=== PATIENT | female | born 1980 | race Two or more races ===

== ENCOUNTER → 2017-01-05 | Outpatient (CLI) | payer OTHER | LOC: FIMAGING 13:36 | PROVIDERS: ATTEND Family Medicine | DX: Z03.89 Encounter for observation for other suspected diseases and conditions ruled out (principal); M79.89 Other specified soft tissue disorders; M32.9 Systemic lupus erythematosus, unspecified ==

== ENCOUNTER 2018-07-06 05:30 | Emergency (ER) | payer OTHER ==
[2018-07-06] MEDS ORDERED: HYDROCODONE/APAP 5/325 TAB PO ONE (06:12)
--- NOTE | 2018-07-06 06:15 | EDPHY ---
H & P Stated Complaint: R lower leg wound since january, worsening pain swelling Time Seen by Provider: 07/06/18 05:41 HPI/ROS: Chief Complaint: Leg pain HPI: 37-year-old woman with a history of lupus presenting with worsening pain in her right leg. Patient had a nonhealing wound since January after she had a biopsy done on her right lower anterior leg. She has daily pain but the pain was worse this morning. She last took acetaminophen about 4:00 a.m. This morning, 500 mg. She took 1000 mg at 11 o'clock. She is being followed by the wound clinic. Pain is been present since January. Today she is having worsening pain primarily in her calf with some increasing swelling. No chest pain shortness of breath. No fevers or chills. No cough. Pain is exactly like her prior pain only worse. Currently is a 6/10. It prevented her from getting any sleep this morning. She has been evaluated for this extensively and states she had an ultrasound at [facility] several months ago. ROS: 10 systems were reviewed and were negative except those elements noted in the HPI. PMH: Lupus, nonhealing wound right leg Social History: No smoking, no alcohol, no recreational drug use Family History: non-contributory Physical Exam: Gen: Awake, Alert, No Distress HEENT: Nose: no rhinorrhea Eyes: PERRLA, EOMI Mouth: Moist mucosa Neck: Supple, no JVD Chest: nontender, lungs clear to auscultation Heart: S1, S2 normal, no murmur Abd: Soft, non-tender, no guarding Back: no CVA tenderness, no midline tenderness Ext: Moderate right ankle edema with significant calf tenderness. Anterior mesa wound is non erythematous, no discharge, dressing in place Skin: no rash Neuro: CN II-XII intact, Sensation grossly intact, Strength 5/5 in bilateral upper and lower extremities - Personal History Current Tetanus/Diphtheria Vaccine: Unsure Current Tetanus Diphtheria and Acellular Pertussis (TDAP): Unsure - Medical/Surgical History Hx Asthma: Yes Hx Chronic Respiratory Disease: No Hx Diabetes: No Hx Cardiac Disease: No Hx Renal Disease: Yes Hx Cirrhosis: No Hx Alcoholism: No Hx HIV/AIDS: No Hx Splenectomy or Spleen Trauma: No Other PMH: LUPUS, arthritis, asthma, - Social History Smoking Status: Never smoked Constitutional: Initial Vital Signs Temperature (C) 37.9 C 07/06/18 05:31 Heart Rate 81 07/06/18 05:31 Respiratory Rate 20 07/06/18 05:31 Blood Pressure 126/56 H 07/06/18 05:31 O2 Sat (%) 98 07/06/18 05:31 O2 Delivery Mode Room Air Allergies/Adverse Reactions: methotrexate Allergy (Verified 07/06/18 05:31) venlafaxine HCl [From Effexor] Allergy (Verified 07/06/18 05:31) Home Medications: Medication Instructions Recorded Folic Acid 07/06/18 Losartan Potassium [Cozaar] 07/06/18 Mycophenolate Mofetil [Cellcept] 07/06/18 cycloSPORINE [Cyclosporine] 07/06/18 predniSONE 07/06/18 Medical Decision Making - Diagnostics Imaging Results: EXAM: US Duplex right Lower Extremity Veins. CLINICAL HISTORY: RLE swelling and pain. HX of infection Dr. Navdeep Duke [phone] TECHNIQUE: Real-time ultrasound scan of the veins of the right lower extremity with color Doppler flow, spectral waveform analysis and compression. COMPARISON: None provided. FINDINGS: DEEP VEINS: The common femoral, femoral, and popliteal veins are echolucent and compressible. These vessels demonstrate respiratory variation and augmentation. There is normal color Doppler flow throughout. The visualized calf veins are also patent. SUPERFICIAL VEINS: The visualized greater saphenous vein is patent. SOFT TISSUES: No popliteal fossa cyst however varicosities are noted in the calf with inguinal lymph nodes. IMPRESSION: No deep venous thrombosis in the right lower extremity. ELECTRONICALLY SIGNED BY: Marty Tompkins MD Jul 06, 2018 6:31:57 AM MDT ED Course/Re-evaluation: Ultrasound is negative. Patient's pain is improved. No signs of worsening infection or DVT. Will discharge with follow-up with primary care physician as an outpatient. - Data Points Medications Given: Discontinued Medications Hydrocodone Bitart/Acetaminophen ([place] 5/325) 1 tab PO EDNOW ONE Stop: 07/06/18 06:13 Last Admin: 07/06/18 06:18 Dose: 1 tab Departure - Departure Disposition: Home, Routine, Self-Care Clinical Impression: Leg pain Condition: Good Instructions: Leg Pain (ED) Additional Instructions: Follow up with primary care physician in 2-3 days for re-evaluation. Return to the emergency department for increasing pain, redness, swelling, fevers, or any other concerns. Referrals: Julissa Gifford MD [Primary Care Provider] - As per Instructions
[2018-07-06 06:53] VITALS: BP 122/59
== END 2018-07-06 06:59 | disposition home or self-care (01) ==
DX: M79.661 Pain in right lower leg (principal); M32.9 Systemic lupus erythematosus, unspecified; J45.909 Unspecified asthma, uncomplicated

== ENCOUNTER 2018-07-07 15:44 | Observation (INO) | payer OTHER ==
--- NOTE | 2018-07-07 16:14 | EDPHY ---
H & P Stated Complaint: Sent by PCP for CT, chest tightness for 2 days. Time Seen by Provider: 07/07/18 15:57 HPI/ROS: CHIEF COMPLAINT: Shortness of breath HISTORY OF PRESENT ILLNESS: The patient is a 37-year-old female with a history of lupus and asthma who is immunosuppressed on prednisone 40 mg daily as well as CellCept. She has had chronic slow healing wounds in her right lower extremity. Over the last week or so she has noticed edema in that extremity as well. She presented here yesterday and had a ultrasound that was negative for DVT. She was evaluated by Dr. Gifford today and found to have an elevated D- dimer and so sent here for PE CT scan. Also Dr. Gifford felt that she may have a new murmur and the patient complained of fevers and chills about a week ago at home. She has an transthoracic echocardiogram scheduled for tomorrow. She is not having fevers currently. She tells me that she does not really feel short of breath but feels like she is having chest tightness. She denies wheezing or coughing. Severity: Moderate Modifying factors: None REVIEW OF SYSTEMS: Constitutional: denies: chills, fever, recent illness, recent injury EENTM: denies: blurred vision, double vision, nose congestion Respiratory: denies: cough, shortness of breath Cardiac: denies: chest pain, irregular heart rate, lightheadedness, palpitations Gastrointestinal/Abdominal: denies: abdominal pain, diarrhea, nausea, vomiting, blood streaked stools Genitourinary: denies: dysuria, frequency, hematuria, pain Musculoskeletal: denies: joint pain, muscle pain Skin: See HPI Neurological: denies: headache, numbness, paresthesia, tingling, dizziness, weakness Hematologic/Lymphatic: denies: blood clots, easy bleeding, easy bruising Immunologic/allergic: denies: HIV/AIDS, transplant 10 systems reviewed and negative except as noted EXAM: GENERAL: Over way, well-appearing and in no acute distress. HEAD: Atraumatic, normocephalic. EYES: Pupils equal round and reactive to light, extraocular movements intact, sclera anicteric, conjunctiva are normal. ENT: TMs normal, nares patent, oropharynx clear without exudates. Moist mucous membranes. NECK: Normal range of motion, supple without lymphadenopathy or JVD. LUNGS: Breath sounds clear to auscultation bilaterally and equal. No wheezes rales or rhonchi. HEART: Regular rate and rhythm with slight murmur, rubs or gallops. ABDOMEN: Soft, nontender, normoactive bowel sounds. No guarding, no rebound. No masses appreciated. BACK: No CVA tenderness, no spinal tenderness, step-offs or deformities EXTREMITIES: Normal range of motion, 1+ edema in the right lower extremity. No clubbing or cyanosis. NEUROLOGICAL: Cranial nerves II through XII grossly intact. Normal speech, normal gait. 5/5 strength, normal movement in all extremities, normal sensation , normal reflexes PSYCH: Normal mood, normal affect. SKIN: Right leg with chronic wounds dressed by wound care yesterday. No surrounding erythema or warmth. Source: Patient, RN/MD Exam Limitations: Language barrier (Looseleaf Binder Coverer used) - Personal History Current Tetanus Diphtheria and Acellular Pertussis (TDAP): Unsure - Medical/Surgical History Hx Asthma: Yes Hx Chronic Respiratory Disease: No Hx Diabetes: No Hx Cardiac Disease: No Hx Renal Disease: Yes Hx Cirrhosis: No Hx Alcoholism: No Hx HIV/AIDS: No Hx Splenectomy or Spleen Trauma: No Other PMH: LUPUS, arthritis, asthma, - Family History Significant Family History: No pertinent family hx - Social History Smoking Status: Never smoked Alcohol Use: None Constitutional: Initial Vital Signs Temperature (C) 36.7 C 07/07/18 15:47 Heart Rate 90 07/07/18 15:47 Respiratory Rate 18 07/07/18 15:47 Blood Pressure 138/73 H 07/07/18 15:47 O2 Sat (%) 99 07/07/18 15:47 O2 Delivery Mode Room Air Allergies/Adverse Reactions: methotrexate Allergy (Verified 07/06/18 05:31) venlafaxine HCl [From Effexor] Allergy (Verified 07/06/18 05:31) Home Medications: Medication Instructions Recorded Folic Acid 07/06/18 Losartan Potassium [Cozaar] 07/06/18 Mycophenolate Mofetil [Cellcept] 07/06/18 cycloSPORINE [Cyclosporine] 07/06/18 predniSONE 07/06/18 Medical Decision Making - Diagnostics EKG Interpretation: An EKG obtained and was read and documented in trace view. Please see trace view for full reading and report. Sinus rhythm no acute ischemic changes no signs of right heart strain Imaging Results: Imaging Impressions Chest/Thorax CTA 07/07/18 16:06 Impression: 1. No evidence of pulmonary embolus using CT protocol. 2. Normal CT chest. 3. Increase number of small lymph nodes within each axilla. Findings discussed with Santiago Richards M.D. at 17:30 hour, 07/07/2018. Imaging: Discussed imaging studies w/ at home independent call center agent Radiologist ED Course/Re-evaluation: Patient's CT is negative. She is quite anemic. I did a rectal exam which was grossly negative but sent to the lab. High suspect that she is anemic and having poor wound healing and edema because of her chronic prednisone use. She is currently on 40 mg of prednisone daily. She had been off of it for couple of months but has generally been on it for more than a year. I suspect that her shortness of breath is from her mild anemia. I do not have any previous hematocrit levels since [address] it [address] Gifford did mention that it had dropped significantly compared to their most recent level. Will transfuse a unit of blood. Discussed this with Dr. Mendoza who will admit. Differential Diagnosis: Partial list of the Differential diagnosis considered include but were not limited to; anemia, medication reaction and although unlikely based on the history and physical exam, I also considered itis, PE, sepsis. - Data Points Laboratory Results: Laboratory Results 07/07/18 16:20 07/07/18 16:20 07/07/18 07/07/18 07/07/18 17:40 16:30 16:20 WBC RBC Hgb Hct MCV MCH MCHC RDW Plt Count MPV Neut % (Auto) Lymph % (Auto) [place] % (Auto) Eos % (Auto) Baso % (Auto) Nucleat RBC Rel Count Absolute Neuts (auto) Absolute Lymphs (auto) Absolute Monos (auto) Absolute Eos (auto) Absolute Basos (auto) Absolute Nucleated RBC Immature Gran % Immature Gran # RBC/WBC/PLT Morphology Platelet Estimate PT INR APTT VBG Lactic Acid Sodium 136 mEq/L mEq/L (135-145) Potassium 3.7 mEq/L mEq/L (3.5-5.2) Chloride 107 mEq/L mEq/L (97-110) Carbon Dioxide 20 mEq/l L mEq/l (22-31) Anion Gap 9 mEq/L mEq/L (6-14) BUN 16 mg/dL mg/dL (7-23) Creatinine 0.9 mg/dL mg/dL (0.6-1.0) Estimated GFR > 60 Glucose 189 mg/dL H mg/dL (70-100) Calcium 8.3 mg/dL L mg/dL (8.5-10.4) Total Bilirubin 0.2 mg/dL mg/dL (0.1-1.4) Conjugated Bilirubin 0.1 mg/dL mg/dL (0.0-0.5) Unconjugated Bilirubin 0.1 mg/dL mg/dL (0.0-1.1) AST 12 IU/L L IU/L (14-46) ALT 10 IU/L IU/L (9-52) Alkaline Phosphatase 76 IU/L IU/L (38-126) POC Troponin I 0.01 ng/mL ng/mL (0.00-0.08) Total Protein 6.2 g/dL L g/dL (6.3-8.2) Albumin 2.9 g/dL L g/dL (3.5-5.0) Stool Occult Bld Scrn NEGATIVE (NEGATIVE) 07/07/18 07/07/18 07/07/18 16:20 16:20 16:09 WBC 9.08 10^3/uL 10^3/uL (3.80-9.50) RBC 2.98 10^6/uL L 10^6/uL (4.18-5.33) Hgb 8.4 g/dL L g/dL (12.6-16.3) Hct 25.9 % L % (38.0-47.0) MCV 86.9 fL fL (81.5-99.8) MCH 28.2 pg pg (27.9-34.1) MCHC 32.4 g/dL g/dL (32.4-36.7) RDW 16.0 % H % (11.5-15.2) Plt Count 350 10^3/uL 10^3/uL (150-400) MPV 9.1 fL fL (8.7-11.7) Neut % (Auto) 91.4 % H % (39.3-74.2) Lymph % (Auto) 4.7 % L % (15.0-45.0) [place] % (Auto) 3.3 % L % (4.5-13.0) Eos % (Auto) 0.2 % L % (0.6-7.6) Baso % (Auto) 0.1 % L % (0.3-1.7) Nucleat RBC Rel Count 0.0 % % (0.0-0.2) Absolute Neuts (auto) 8.30 10^3/uL H 10^3/uL (1.70-6.50) Absolute Lymphs (auto) 0.43 10^3/uL L 10^3/uL (1.00-3.00) Absolute Monos (auto) 0.30 10^3/uL 10^3/uL (0.30-0.80) Absolute Eos (auto) 0.02 10^3/uL L 10^3/uL (0.03-0.40) Absolute Basos (auto) 0.01 10^3/uL L 10^3/uL (0.02-0.10) Absolute Nucleated RBC 0.00 10^3/uL 10^3/uL (0-0.01) Immature Gran % 0.3 % % (0.0-1.1) Immature Gran # 0.03 10^3/uL 10^3/uL (0.00-0.10) RBC/WBC/PLT Morphology TNP Platelet Estimate TNP PT 13.5 SEC SEC (12.0-15.0) INR 1.07 (0.83-1.16) APTT 28.5 SEC SEC (23.0-38.0) VBG Lactic Acid 1.5 mmol/L mmol/L (0.7-2.1) Sodium Potassium Chloride Carbon Dioxide Anion Gap BUN Creatinine Estimated GFR Glucose Calcium Total Bilirubin Conjugated Bilirubin Unconjugated Bilirubin AST ALT Alkaline Phosphatase POC Troponin I Total Protein Albumin Stool Occult Bld Scrn Point of Care Test Results: Chemistry 07/07/18 16:30 POC Troponin I 0.01 ng/mL ng/mL (0.00-0.08) Departure - Departure Disposition: [facility] Inpatient Acute Clinical Impression: Medication side effect Anemia Qualifiers: Anemia type: unspecified type Qualified Code(s): D64.9 - Anemia, unspecified Condition: Fair
--- NOTE | 2018-07-07 16:31 | CPEKG ---
Test Reason : OPEN Blood Pressure : / mmHG Vent. Rate : 082 BPM Atrial Rate : 082 BPM P-R Int : 156 ms QRS Dur : 093 ms QT Int : 360 ms P-R-T Axes : 072 022 059 degrees QTc Int : 421 ms Sinus rhythm Confirmed by Johana Rosario ([id number]) on 07/07/2018 4:31:08 PM Referred By: JOHANA ROSARIO Confirmed By:Johana Rosario
[2018-07-07 16:40] LABS: PLATELET COUNT 350 10^3/uL (150-400)
[2018-07-07 16:48] LABS: INR 1.07 (0.83-1.16); PROTIME(PATIENT) 13.5 SEC (12.0-15.0)
[2018-07-07] MEDS ORDERED: IOPAMIDOL (ISOVUE 370) 100 ML BTL IV ONE (16:50)
[2018-07-07] MEDS ORDERED: HYDROCODONE/APAP 5/325 TAB PO PRN (18:34)
[2018-07-07] MEDS ORDERED: oxyCODONE IR 5 MG TAB PO PRN (18:34)
[2018-07-07] MEDS ORDERED: LORazepam 2 MG/ML INJ IVP PRN (18:34)
[2018-07-07] MEDS ORDERED: ONDANSETRON 4 MG/2 ML VIAL IVP PRN (18:34)
[2018-07-07] MEDS ORDERED: PROMETHAZINE HCL 25 MG/ML INJ IVP PRN (18:34)
[2018-07-07] MEDS ORDERED: HYDROmorphONE/DILAUDID 1 MG/ML INJ IVP PRN (18:34)
[2018-07-07] MEDS ORDERED: ONDANSETRON DISINTEGRATING 4 MG TAB PO PRN (18:34)
[2018-07-07] MEDS ORDERED: LORazepam 0.5 MG TAB PO PRN (18:34)
--- NOTE | 2018-07-07 18:43 | PDGENHP ---
History and Physical - Chief Complaint sob, rash - History of Present Illness 37 yo F with PMH that includes lupus on chronic immune suppression as well as asthma, chronic anemia and non healing wound involving the RLE following a punch biopsy presenting with multiple complaints including SOB, increased swelling in the RLE and new rash involving her palms and face that she was told is due to a side effect to one of her medications, she believes cyclosporine. She has been followed by the wound clinic for her lower extremity wound and that has been thought to be healing relatively well, it sounds like she was treated with doxycycline for these relatively recently and that was thought to help. She noted increased swelling in that leg over several days and was seen in the ER yesterday for that, an US was performed at that time and negative for DVT. She states she has now been having increased sob--not severe, but new from prior. She has also had low grade fevers and generalized malaise on and off for a week or so. She was seen by her PCP Dr. Gifford today who checked a dimer which was elevated and sent her here for CTA. She was also noted on exam by her PCP to have a murmur which was not appreciated previously and therefore an echo was ordered by her PCP as well. History Information - Allergies/Home Medication List Allergies/Adverse Reactions: methotrexate Allergy (Verified 07/06/18 05:31) venlafaxine HCl [From Effexor] Allergy (Verified 07/06/18 05:31) Home Medications: Folic Acid 07/06/18 [Last Taken Unknown] Losartan Potassium [Cozaar] 07/06/18 [Last Taken Unknown] Mycophenolate Mofetil [Cellcept] 07/06/18 [Last Taken Unknown] cycloSPORINE [Cyclosporine] 07/06/18 [Last Taken Unknown] predniSONE 07/06/18 [Last Taken Unknown] I have personally reviewed and updated: family history, medical history, social history, surgical history - Past Medical History asthma, hypertension Additional medical history: SLE with associated glomerular disease followed by Dr. Gonzales. Jona. chronic immune suppression - Surgical History Additional surgical history: laparoscopic surgery - Family History Positive for: non-pertinent - Social History Smoking Status: Never smoked Alcohol Use: None Drug Use: None Additional social history: Review of Systems Review of Systems: ROS: 10pt was reviewed & negative except for what was stated in HPI & below Physical Exam Physical Exam: Temp Pulse Resp BP Pulse Ox 36.8 C 71 16 120/65 97 07/07/18 18:21 07/07/18 18:21 07/07/18 18:21 07/07/18 18:21 07/07/18 18:21 Constitutional: appears nourished, uncomfortable Eyes: PERRL, anicteric sclera Ears, Nose, Mouth, Throat: moist mucous membranes, hearing normal Cardiovascular: regular rate and rhythym, systolic murmur Respiratory: no respiratory distress, reduced air movement Gastrointestinal: normoactive bowel sounds, soft, non-tender abdomen Genitourinary: no bladder tenderness Skin: warm, rash (on palms bilaterally, erythematous, macular) Musculoskeletal: full muscle strength Neurologic: AAOx3 Psychiatric: interacting appropriately, not anxious, not encephalopathic Lab Data & Imaging Review 07/07/18 16:20 07/07/18 16:20 WBC 9.08 10^3/uL (3.80-9.50) 07/07/18 16:20 RBC 2.98 10^6/uL (4.18-5.33) L 07/07/18 16:20 Hgb 8.4 g/dL (12.6-16.3) L 07/07/18 16:20 Hct 25.9 % (38.0-47.0) L 07/07/18 16:20 MCV 86.9 fL (81.5-99.8) 07/07/18 16:20 MCH 28.2 pg (27.9-34.1) 07/07/18 16:20 MCHC 32.4 g/dL (32.4-36.7) 07/07/18 16:20 RDW 16.0 % (11.5-15.2) H 07/07/18 16:20 Plt Count 350 10^3/uL (150-400) 07/07/18 16:20 MPV 9.1 fL (8.7-11.7) 07/07/18 16:20 Neut % (Auto) 91.4 % (39.3-74.2) H 07/07/18 16:20 Lymph % (Auto) 4.7 % (15.0-45.0) L 07/07/18 16:20 [place] % (Auto) 3.3 % (4.5-13.0) L 07/07/18 16:20 Eos % (Auto) 0.2 % (0.6-7.6) L 07/07/18 16:20 Baso % (Auto) 0.1 % (0.3-1.7) L 07/07/18 16:20 Nucleat RBC Rel Count 0.0 % (0.0-0.2) 07/07/18 16:20 Absolute Neuts (auto) 8.30 10^3/uL (1.70-6.50) H 07/07/18 16:20 Absolute Lymphs (auto) 0.43 10^3/uL (1.00-3.00) L 07/07/18 16:20 Absolute Monos (auto) 0.30 10^3/uL (0.30-0.80) 07/07/18 16:20 Absolute Eos (auto) 0.02 10^3/uL (0.03-0.40) L 07/07/18 16:20 Absolute Basos (auto) 0.01 10^3/uL (0.02-0.10) L 07/07/18 16:20 Absolute Nucleated RBC 0.00 10^3/uL (0-0.01) 07/07/18 16:20 Immature Gran % 0.3 % (0.0-1.1) 07/07/18 16:20 Immature Gran # 0.03 10^3/uL (0.00-0.10) 07/07/18 16:20 RBC/WBC/PLT Morphology TNP 07/07/18 16:20 Platelet Estimate TNP 07/07/18 16:20 PT 13.5 SEC (12.0-15.0) 07/07/18 16:20 INR 1.07 (0.83-1.16) 07/07/18 16:20 APTT 28.5 SEC (23.0-38.0) 07/07/18 16:20 VBG Lactic Acid 1.5 mmol/L (0.7-2.1) 07/07/18 16:09 Sodium 136 mEq/L (135-145) 07/07/18 16:20 Potassium 3.7 mEq/L (3.5-5.2) 07/07/18 16:20 Chloride 107 mEq/L (97-110) 07/07/18 16:20 Carbon Dioxide 20 mEq/l (22-31) L 07/07/18 16:20 Anion Gap 9 mEq/L (6-14) 07/07/18 16:20 BUN 16 mg/dL (7-23) 07/07/18 16:20 Creatinine 0.9 mg/dL (0.6-1.0) 07/07/18 16:20 Estimated GFR > 60 07/07/18 16:20 Glucose 189 mg/dL (70-100) H 07/07/18 16:20 Calcium 8.3 mg/dL (8.5-10.4) L 07/07/18 16:20 Total Bilirubin 0.2 mg/dL (0.1-1.4) 07/07/18 16:20 Conjugated Bilirubin 0.1 mg/dL (0.0-0.5) 07/07/18 16:20 Unconjugated Bilirubin 0.1 mg/dL (0.0-1.1) 07/07/18 16:20 AST 12 IU/L (14-46) L 07/07/18 16:20 ALT 10 IU/L (9-52) 07/07/18 16:20 Alkaline Phosphatase 76 IU/L (38-126) 07/07/18 16:20 POC Troponin I 0.01 ng/mL (0.00-0.08) 07/07/18 16:30 Total Protein 6.2 g/dL (6.3-8.2) L 07/07/18 16:20 Albumin 2.9 g/dL (3.5-5.0) L 07/07/18 16:20 Stool Occult Bld Scrn NEGATIVE (NEGATIVE) 07/07/18 17:40 Crossmatch IS Only See Detail 07/07/18 18:00 Visualized and Interpreted imaging results: Yes Interpretation: CTA chest: no PE, no pna Visualized and Interpreted EKG results: Yes EKG Interpretation: Positive for: normal sinsus rhythm Assessment & Plan Assessment: Anemia (Acute) Medication side effect (Acute) 37 yo F with PMH that includes SLE with associated glomerular disease on chronic immune suppression presenting with acute on chronic anemia, sob, LE swelling and rash # acute on chronic anemia: no recent prior labs available in our system, however per PCP hct has recently been in low 30s, currently presenting with hct 25.9, denies symptoms suggestive of GI bleed and hemoccult negative. Likely due to anemia of chronic disease, unclear why worsening however. Will check iron studies, b12, tsh, crp/esr. Given associated sob/malaise given 1 unit PRBC in ER. Will continue to trend # sob: without hypoxia and query if related to worsening anemia as above, no PE or PNA on cxr, echo in am as next # murmur: patient with systolic murmur appreciated on exam and per PCP that was not present previously, possibly due to anemia as above, echo in am # BLE edema: relatively mild, R > L, US performed yesterday without DVT, echo as above, had been on amlodipine apparently recently which made this worse # palmar rash: per patient this was reportedly due to side effect of cyclosporine and that it is improving as is rash on her face, ? acral erythema however does appear to be more discrete macular rash, no involvement of feet. Will check syphilis screen, patient does have f/u w/dermatology reportedly pending # SLE: with chronic immune suppression due to this, does have associated glomerular disease per report but renal function currently normal, will continue op medications and f/u with rheum per routine # HTN: continue op medications once confirmed # observation status Patient new to my care. Old records reviewed and summarized as above. Care plan reviewed with ER doctor as above, further hx obtained from patients present at bedside. History obtained with help of Social Sciences Lecturer present at bedside as patient is [place] speaking only.
[2018-07-07] MEDS ORDERED: NS 1,000 ML IV SCH (18:45)
[2018-07-08 04:40] LABS: PLATELET COUNT 303 10^3/uL (150-400)
[2018-07-08] MEDS: ACETAMINOPHEN 325 MG TAB PO PRN ×2 (05:50→16:33)
[2018-07-08] MEDS ORDERED: predniSONE 5 MG TAB PO SCH (09:00)
[2018-07-08] MEDS ORDERED: FOLIC ACID 1 MG TAB PO SCH (09:00)
[2018-07-08] MEDS ORDERED: ALBUTEROL 60 PUFFS/8 GM MDI IH PRN (09:00)
[2018-07-08] MEDS ORDERED: LOSARTAN POTASSIUM 50 MG TAB PO SCH (09:00)
[2018-07-08] MEDS ORDERED: oxyCODONE IR 5 MG TAB PO PRN (09:00)
[2018-07-08] MEDS ORDERED: cycloSPORINE 100 MG CAP PO SCH (09:00)
[2018-07-08] MEDS ORDERED: NON-FORMULARY NEW DRUG (Mycophenolate Mofetil [Cellcept] 1,000 MG) PO SCH (09:00)
[2018-07-08] MEDS ORDERED: MYCOPHENOLATE MOFETIL 250 MG CAP PO SCH (09:30)
--- NOTE | 2018-07-08 10:06 | WOCRNPDOC ---
WOCRN Advanced Assessment Note - Skin Integrity Problem, Advanced Assess Right Lower Distal Leg Dressing Type: Hydrofera Blue (removed by Dr Roberson), Mepilex Border Dressing Description: Intact, Shadowed Exudate Amount: Moderate Exudate Color: Yellow, Brown Exudate Characteristic(s): Serosanguinous Integumentary Issue Intervention: Visualized Under Dressing Vivian Wound Tissue: Erythema (circumferentially up to 3 cm), Swollen, Shiny, Dry Vivian Wound Swelling: Moderate Wound Bed Constitution: Granulation Tissue Wound Edges: Attached Site Odor: None Site Measurement - Head-to-Toe Length X Width X Depth (cm): 1x1.3x0.5 Skin Integrity Problem Comment: The distal wound of two on patient's lower R mesa seperated from other wound by 0.5 cm of skin. Etiology punch biopsy. Wound cleaned with ns and gauze. Small piece of Hydrofera Blue Transfer cut to fit size of wound bed. secured in place with steri strip. Wound covered with Optilock Super Absorbant dressing secured with medipore tape. Dressing then secured with stretch netting. Wood Boatbuilder Apprentice Mynor WHITE in room for care. Will continue to follow. Right Lower Proximal Leg Dressing Type: Hydrofera Blue, Mepilex Border Dressing Description: Clean/Dry, Intact Exudate Amount: Moderate Exudate Color: Brown Exudate Characteristic(s): Cloudy, Serosanguinous Integumentary Issue Intervention: Visualized Under Dressing Vivian Wound Tissue: Erythema (circumferentially up to 3 cm), Swollen, Dry Vivian Wound Swelling: Moderate Wound Bed Color: [place], Red, Yellow Wound Bed Constitution: Granulation Tissue (100%) Wound Edges: Epithelizing, Attached Site Odor: None Site Measurement - Head-to-Toe Length X Width X Depth (cm): 1.5x1.8x0.5 Skin Integrity Problem Comment: The proximal wound of two on patient's lower R mesa seperated from other wound by 0.5 cm of skin. Etiology punch biopsy. Small piece of Hydrofera Blue Transfer cut to fit size of wound bed. secured in place with steri strip. Wound covered with Optilock Super Absorbant dressing secured with medipore tape. Dressing then secured with stretch netting. Wood Boatbuilder Apprentice Mynor WHITE in room for care. Will continue to follow.
[2018-07-08 10:39] LABS: PLATELET COUNT 321 10^3/uL (150-400)
--- NOTE | 2018-07-08 10:56 | HOSPPROG ---
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 #Anemia: Acute on chronic. Inappropriate response to PRBC transfusion. No e/o bleeding. - Iron studies c/w chronic disease. B12 borderline low - Check hemolysis labs, smear, PERLA, cold agglutinins - If hemolyzing, will need pulse dose steroids #Systolic murmur: MVP and Libman-Sachs endocarditis can occur w/SLE. - TTE and blood cultures ordered #Dyspnea: Not hypoxic. Neg for PE. Suspect r/t anemia. #SLE: Inflammatory markers significantly elevated, recent increase in proteinuria and now anemia all concerning for flare. Case d/w her movie actor Max Gonzales started her on prednisone 1 week ago. - Continue cellcept 1.5g bid, cyclosporine, pred 40. May need increased steroids as above #RLE wound: 2/2 non-healing biopsy site in setting of immunosuppression - Dr Roberson of surgery evaluated, no indication for debridement - Wound care consulted #Nephrotic range proteinuria: D/t lupus. Recent increase from 1 to 3.5g of proteinuria and was started on steroids for this. Cr 0.9. #Pyoderma gangrenosum #BLE edema: 2/2 steroids and proteinuria. #HTN: Continue home losartan. VTE ppx: Code: full Dispo: discharge pending above evaluation. if not hemolyzing, possibly dc later today. if hemolyzing, will switch to inpatient. Subjective: Feeling ok. Chest pressure has resolved but still a little short of breath. Right leg wound is quite painful. Objective: Vital Signs Temp Pulse Resp BP Pulse Ox 36.9 C 64 16 100/68 95 07/08/18 07:21 07/08/18 07:21 07/08/18 07:21 07/08/18 10:07 07/08/18 07:21 Laboratory Results 07/08/18 10:32 07/08/18 03:58 07/07/18 07/08/18 07/09/18 05:59 05:59 05:59 Intake Total 400 Output Total 200 Balance 400 -200 PT 13.5 SEC (12.0-15.0) 07/07/18 16:20 INR 1.07 (0.83-1.16) 07/07/18 16:20 - Physical Exam Constitutional: other (appears older than stated age) Eyes: PERRL, anicteric sclera Ears, Nose, Mouth, Throat: moist mucous membranes Cardiovascular: regular rate and rhythym, systolic murmur, edema (1+ BLE (R>L)) Respiratory: no respiratory distress, no rales or rhonchi, clear to auscultation Gastrointestinal: normoactive bowel sounds, soft, non-tender abdomen, no palpable masses Genitourinary: no bladder fullness, no bladder tenderness, no renal bruits Skin: other (hyperpigmentation of BLE c/w PG) Musculoskeletal: full muscle strength Neurologic: AAOx3 Psychiatric: interacting appropriately ICD10 Worksheet Patient Problems: Problems Problem Status Onset Anemia Acute Medication side effect Acute
--- NOTE | 2018-07-08 12:06 | ECHO ---
[email or web address] [address] [address] Main: [phone] Echocardiography Examination Transthoracic Name: LUCIO KNAPP MR#: [id number] Study Date: 07/08/2018 Study Time: 10:40 AM Date of : 1980 Age: 37 year(s) Height: 170.2 cm (67 in.) Weight: 96.16 kg (212 lb.) BSA: 2.07 m2 Gender: Female Examination: Echo Contrast: Image Quality: Adequate Rhythm: Heart Rate: BP: 100 mmHg/68 mmHg Indication: new murmur Procedure Staff Referring Physician: Water Resource Engineer: Amira Markham RDCS Reading Physician: Ravin Browning MD Requesting Provider: Indication: new murmur Measurements Chambers AV/MV Label Value Normal Value Label Value Normal Value LVOTd 2.2 cm (1.8cm - 2cm) AV PGmax 13 mmHg LVOT VTI 25.8 cm (18cm - 22cm) AV PGmean 7 mmHg LVDd, 2D 5.8 cm (3.9cm - 5.3cm) AV Vmax 1.79 m/s LVDs, 2D 3.8 cm (2.1cm - 4cm) KD (VTI) 2.5 cm2 IVSd, 2D 1 cm (0.6cm - 1.1cm) MV E Vmax 1.3 m/s LVPWd, 2D 1 cm MV A Vmax 0.57 m/s LVEF, BP 60 % (55% - 70%) MV E/A 2.28 LVEF, 2D 64 % (54% - 74%) MV E/E' lateral 9.4 LVOT PGmean 3 mmHg MV E/E' septal 11.7 (0.6 - 2.6) LVOT Vmean 0.82 m/s MV DT 211 ms RVDd, 2D 3 cm (1.9cm - 3.8cm) MV E' septal 0.11 m/s LA Volume, BP 92 ml (22ml - 52ml) MV PHT 0.07 s LADs, 2D 4.4 cm (2.7cm - 3.8cm) MVA PHT 3.4 cm2 LAESV index, BP 44.4 ml/m2 MV E' lateral 0.14 m/s RA Area 19.7 cm2 MV E/E' mean 10.4 Additional Vessels MV PHT 65 ms Label Value Normal Value MV E' mean 0.12 m/s AoAsc 3.3 cm TV/PV AoRoot, 2D 2.8 cm (1.4cm - 2.6cm) Label Value Normal Value IVC 2.1 cm (1.2cm - 2.3cm) RA Pressure 5 mmHg Patient: LUCIO KNAPP Study Date: 07/08/2018 Page 1 of 3 10:40 AM RVSP 35 mmHg TR Pmax 30 mmHg TR Vmax 2.74 m/s PV PGmax 6 mmHg PV Vmax, Caliper 1.21 m/s (0.6m/s - 0.9m/s) Conclusions Normal left ventricular size and function. LVEF estimated at 55-60% and calculated at 60% by Rodriguez's. Normal left ventricular free wall thickness without regional wall motion abnormalities. Normal diastolic function. Moderate left atrial enlargement with mild right atrial enlargement. Intact interatrial septum on color flow Doppler imaging. Normal-appearing valvular structures. Mild mitral with trivial aortic regurgitation. Mild tricuspid regurgitation. Normal estimated RVSP at 35 mmHg. Trivial pericardial effusion. No prior studies. Findings Left Ventricle: Left ventricle is mildly dilated. Normal global systolic left ventricular function. The ejection fraction, measured by Simpsons method, is 60 %. EF range is estimated at 55 % - 60 %. Left ventricle wall thickness is normal. There are no regional wall motion abnormalities. Left ventricular diastolic function parameters are normal. No LV hypertrophy. Right Ventricle: Normal size right ventricle. Right ventricular systolic function is normal. Left Atrium: The left atrium is moderately dilated. Right Atrium: The right atrium is mildly dilated. Mitral Valve: Mitral valve appears structurally normal. Mild mitral regurgitation. No mitral valve stenosis. Aortic Valve: Aortic leaflets are structurally normal. Trivial aortic regurgitation is present. There is no aortic stenosis. There is aortic sclerosis present. Tricuspid Valve: Tricuspid valve leaflets are structurally normal. Mild tricuspid regurgitation. No tricuspid valve stenosis. Right Ventricular systolic pressure is measured at 35 mmHg. Pulmonary artery pressure slightly increased. Pulmonic Valve: Pulmonic leaflets are structurally normal. Trivial pulmonic valve regurgitation is present. Aorta: The aortic root size in 2D measures 2.8 cm. The ascending aorta measures 3.3 cm. Aorta Measurements AoRoot, 2D is 2.8 cm. IVC: The inferior vena cava is normal in size. Pericardium: Trivial pericardial effusion. Exam Details Procedure Ordered: Echo Procedure Status: Routine study Image Quality: Adequate Facility Location: Cardiac Echo 1 (No Signature Object) Patient: LUCIO KNAPP Study Date: 07/08/2018 Page 2 of 3 10:40 AM Patient: LUCIO KNAPP Study Date: 07/08/2018 Page 3 of 3 10:40 AM [id number]
--- NOTE | 2018-07-08 14:22 | ASMTCMCOM ---
CM Note CM Note Notes: Patient is a 37 year old omani speaking female with SLE with renal manifestations on chronic immunosuppression nerve with dyspnea found to be anemic. PT/OT recommend home when discharged. CM reviewed the chart. CM discussed patient in rounds. Patient has outpatient linkage. She will continue with her outpatient follow ups. CM available if needs arise. Plan: Independent Date Signed: 07/08/2018 02:22 PM Electronically Signed By:Ene Matamoros
[2018-07-08 15:12] VITALS: BP 135/82
[2018-07-08] MEDS ORDERED: methylPREDNISolone SOD SUCC 500 MG in D5W 100 ML IV ONE (15:34)
--- NOTE | 2018-07-08 16:47 | PDDCSUM ---
Discharge Summary Discharge Summary: Date of Admission: 07/07/2018 Date of Discharge: 07/08/2018 Studies: TTE Discharge Diagnoses: 1. 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 #Anemia: Acute on chronic. Inappropriate response to PRBC transfusion. No e/o bleeding. - Iron studies c/w chronic disease. B12 borderline low - Check hemolysis labs, smear, PERLA, cold agglutinins - If hemolyzing, will need pulse dose steroids #Systolic murmur: MVP and Libman-Sachs endocarditis can occur w/SLE. - TTE and blood cultures ordered #Dyspnea: Not hypoxic. Neg for PE. Suspect r/t anemia. #SLE: Inflammatory markers significantly elevated, recent increase in proteinuria and now anemia all concerning for flare. Case d/w her ortho assistant Max Gonzales started her on prednisone 1 week ago. - Continue cellcept 1.5g bid, cyclosporine, pred 40. May need increased steroids as above #RLE wound: 2/2 non-healing biopsy site in setting of immunosuppression - Dr Roberson of surgery evaluated, no indication for debridement - Wound care consulted #Nephrotic range proteinuria: D/t lupus. Recent increase from 1 to 3.5g of proteinuria and was started on steroids for this. Cr 0.9. #Pyoderma gangrenosum #BLE edema: 2/2 steroids and proteinuria. #HTN: Continue home losartan. Medications: Please refer to EMR for complete list. No changes were made. Follow Up Plan: 1. She has appointment next week with her ortho assistant Dr Max Gonzales. She will need to have her blood counts and renal function monitored at that time. Physical Exam: Vitals reviewed, afebrile. Alert and oriented, rrr, systolic murmur, lungs clear, abdomen soft and nontender, trace BLE pitting edema, hyperpigmented lesions on bilateral shins.
== END 2018-07-08 18:15 | disposition home or self-care (01) ==
LOC: F1N 18:10
PROVIDERS: ADMIT Internal Medicine; ATTEND Internal Medicine
PROC: 30233N1 Transfusion of Nonautologous Red Blood Cells into Peripheral Vein, Percutaneous Approach (ICD-10-PCS; principal; 2018-07-07)
DX: D64.9 Anemia, unspecified (principal); L97.211 Non-pressure chronic ulcer of right calf limited to breakdown of skin; L76.82 Other postprocedural complications of skin and subcutaneous tissue; R22.43 Localized swelling, mass and lump, lower limb, bilateral; R01.1 Cardiac murmur, unspecified; R06.00 Dyspnea, unspecified; R80.9 Proteinuria, unspecified; M32.9 Systemic lupus erythematosus, unspecified; L88 Pyoderma gangrenosum; I10 Essential (primary) hypertension; J45.909 Unspecified asthma, uncomplicated; I73.00 Raynaud's syndrome without gangrene; Z79.52 Long term (current) use of systemic steroids
CPT/HCPCS: 82607-90; 83010-90; 84484-ER; 97116-GP; 97161-GP; 97165-GO; G0378; J2930; J7502; J7512; P9016; Q9967